=== PATIENT | female | born 1980 | race Caucasian/White ===

== ENCOUNTER 2017-05-20 15:17 | Emergency (ER) | payer BC ==
[2017-05-20 16:40] VITALS: BP 137/75
--- NOTE | 2017-05-20 16:50 | UC ---
Ear Complaint HPI - HPI Summary HPI Summary: Ear pain for 3 days - History of Current Complaint Chief Complaint: UCEar Stated Complaint: LEFT EAR PAIN Time Seen by Provider: 05/20/17 16:44 Hx Obtained From: Patient Hx Last Menstrual Period: 7 yrs ago - on mirena Onset/Duration: Sudden Onset, Lasting Days Severity Initially: Moderate - Allergies/Home Medications Allergies/Adverse Reactions: Allergies Allergy/AdvReac Type Severity Reaction Status Date / Time Azithromycin Allergy Intermediate Rash Verified 05/20/17 16:40 [From Zithromax Z-Victor Manuel] mangoes Allergy Swelling Uncoded 05/20/17 16:40 Of Face,Lips,& Throat seasonal Allergy Congestion Uncoded 05/20/17 16:40 PMH/Surg Hx/FS Hx/Imm Hx - Surgical History Surgical History: Yes Surgery Procedure, Year, and Place: breast reduction, wisdom tooth extraction - Family History Known Family History: Positive: None - Social History Alcohol Use: Occasionally Substance Use Type: None Smoking Status (MU): Never Smoked Tobacco Have You Smoked in the Last Year: No Physical Exam Vital Signs: Initial Vital Signs Temp 97.7 F 05/20/17 16:37 Pulse 105 05/20/17 16:37 Resp 14 05/20/17 16:37 BP 137/75 05/20/17 16:37 Pulse Ox 100 05/20/17 16:37 Ear Complaint Course/Dx - Course Course Of Treatment: hx obtained, exam performed ,med reviewed treated for serous otitis left ear - Differential Dx/Diagnosis Differential Diagnosis/HQI/PQRI: Cerumen Impaction, Otitis Externa, Otitis Media , URI Provider Diagnoses: Serous otitis of left ear Discharge - Discharge Plan Condition: Stable Disposition: HOME Prescriptions: predniSONE TAB* [Deltasone TAB*] 40 mg PO DAILY #14 tab Patient Education Materials: Serous Otitis Media (ED) Additional Instructions: 1. warm compresses to the left ear 2. Take the medication as prescribed. 3. Follow up with any worsening symtpoms 4. Gargle with salt water.
== END 2017-05-20 16:57 | disposition home or self-care (01) ==
LOC: UCCORT 15:17
DX: H65.92 Unspecified nonsuppurative otitis media, left ear (principal); J30.2 Other seasonal allergic rhinitis; Z91.018 Allergy to other foods; Z88.1 Allergy status to other antibiotic agents
CPT/HCPCS: 99211; G0463

== ENCOUNTER 2018-07-30 14:23 | Emergency (ER) | payer BC ==
[2018-07-30 15:50] VITALS: BP 131/84
--- NOTE | 2018-07-30 16:14 | UC ---
Throat Pain/Nasal Yassine HPI - HPI Summary HPI Summary: Pt c/o left ear pain, ST, nasal congestion X "several days". Pt has a hx of asthma and allergies. Pt is a school resource officer - History of Current Complaint Chief Complaint: UCRespiratory Stated Complaint: ST, LT EAR PAIN Time Seen by Provider: 07/30/18 15:30 Hx Obtained From: Patient Hx Last Menstrual Period: 07/17/18 ?: No Onset/Duration: Gradual Onset, Lasting Days, Still Present Severity: Moderate Pain Intensity: 5 Cough: None Associated Signs & Symptoms: Positive: Dysphagia, Hoarseness, Sinus Discomfort, Nasal Discharge Related History: Seasonal Allergies - Epiglottits Risk Factors Epiglottis Risk Factors: Negative - Allergies/Home Medications Allergies/Adverse Reactions: Allergies Allergy/AdvReac Type Severity Reaction Status Date / Time azithromycin Allergy Rash Verified 07/30/18 15:43 Home Medications: Home Medications Citalopram TAB* [CeleXA TAB*] 20 mg PO DAILY 07/30/18 [History Confirmed ] hydrOXYzine HCL TAB* [Atarax 10 MG TAB*] 10 mg PO TID PRN 07/30/18 [History Confirmed 07/30/18] PMH/Surg Hx/FS Hx/Imm Hx Previously Healthy: Yes Respiratory History: Asthma - Surgical History Surgical History: Yes Surgery Procedure, Year, and Place: breast reduction, wisdom tooth extraction - Family History Known Family History: Positive: None Negative: Cardiac Disease, Hypertension - Social History Occupation: Employed Full-time Lives: With Family Alcohol Use: Occasionally Substance Use Type: None Smoking Status (MU): Never Smoked Tobacco Have You Smoked in the Last Year: No Review of Systems All Other Systems Reviewed And Are Negative: Yes Constitutional: Positive: Chills Skin: Positive: Negative Eyes: Positive: Negative ENT: Positive: Sore Throat, Ear Ache - left Respiratory: Positive: Negative Cardiovascular: Positive: Negative Gastrointestinal: Positive: Negative Genitourinary: Positive: Negative Motor: Positive: Negative Neurovascular: Positive: Negative Musculoskeletal: Positive: Negative Neurological: Positive: Negative Psychological: Positive: Negative Is Patient Immunocompromised?: No Physical Exam Triage Information Reviewed: Yes Appearance: Well-Appearing Vital Signs: Initial Vital Signs Temp 97.5 F 07/30/18 15:45 Pulse 89 07/30/18 15:45 Resp 14 07/30/18 15:45 BP 131/84 07/30/18 15:45 Pulse Ox 98 07/30/18 15:45 Vital Signs Reviewed: Yes Eye Exam: Normal ENT: Positive: Nasal congestion, TM bulging Dental Exam: Normal Neck exam: Normal Respiratory Exam: Normal Respiratory: Positive: Lungs clear Cardiovascular Exam: Normal Musculoskeletal Exam: Normal Neurological Exam: Normal Psychological Exam: Normal Skin Exam: Normal Diagnostics - Laboratory Diagnostic Studies Completed/Ordered: rapid strep: negative Throat Pain/Nasal Course/Dx - Differential Dx/Diagnosis Differential Diagnosis/HQI/PQRI: Otitis Media, Pharyngitis, Tonsillitis Provider Diagnosis: Viral syndrome, Left ear pain, Sore throat Discharge - Sign-Out/Discharge Documenting (check all that apply): Patient Departure All imaging exams completed and their final reports reviewed: No Studies - Discharge Plan Condition: Stable Disposition: HOME Patient Education Materials: Viral Syndrome (ED) Referrals: Lexus Gilman NP [Primary Care Provider] - If Needed - Billing Disposition and Condition Condition: STABLE Disposition: Home
== END 2018-07-30 16:31 | disposition home or self-care (01) ==
LOC: UCCORT 14:23
DX: B34.9 Viral infection, unspecified (principal); H92.02 Otalgia, left ear; J02.9 Acute pharyngitis, unspecified; Z88.1 Allergy status to other antibiotic agents; J45.909 Unspecified asthma, uncomplicated
CPT/HCPCS: 87651; 99211; G0463

== ENCOUNTER 2018-08-20 18:55 | Emergency (ER) | payer BC, OTHER ==
[2018-08-20 19:19] VITALS: BP 139/89
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
== END 2018-08-20 19:33 | disposition home or self-care (01) ==
LOC: UCCORT 18:55
DX: S16.1XXA Strain of muscle, fascia and tendon at neck level, initial encounter (principal); I10 Essential (primary) hypertension; Z88.1 Allergy status to other antibiotic agents; V49.9XXA Car occupant (driver) (passenger) injured in unspecified traffic accident, initial encounter; Y92.9 Unspecified place or not applicable
CPT/HCPCS: 99212; G0463

== ENCOUNTER 2019-02-03 12:18 | Emergency (ER) | payer BC ==
[2019-02-03 12:48] VITALS: BP 125/76
--- NOTE | 2019-02-03 13:00 | UC ---
UC General HPI - HPI Summary HPI Summary: 3 day hx of pain to outside of L foot and rocking chair rolled on it. it swelling when standing for periods of time. also notes episodic sharp throat and L ear pains ever since the flu in September. admits ear feels plugged and like it has fluid and makes noise. denies any fever, uri or discharge. - History of Current Complaint Chief Complaint: UCLowerExtremity Stated Complaint: LEFT FOOT INJURY Time Seen by Provider: 02/03/19 12:38 Hx Obtained From: Patient Hx Last Menstrual Period: 01/19/19 Pain Intensity: 5 Associated Signs & Symptoms: Negative: Headache - Allergy/Home Medications Allergies/Adverse Reactions: Allergies Allergy/AdvReac Type Severity Reaction Status Date / Time azithromycin Allergy Rash Verified 10/04/18 18:09 Home Medications: Home Medications Cetirizine* [ZyrTEC 10 MG TAB*] 10 mg PO DAILY PRN 02/03/19 [History Confirmed 02/03/19] Ibuprofen TAB* [Advil TAB*] 200 mg PO Q6H PRN 02/03/19 [History Confirmed ] PMH/Surg Hx/FS Hx/Imm Hx - Additional Past Medical History Additional PMH: allergies Psychological History: Anxiety - Surgical History Surgical History: Yes Surgery Procedure, Year, and Place: breast reduction - Family History Known Family History: Positive: None Negative: Cardiac Disease, Hypertension - Social History Alcohol Use: Occasionally Substance Use Type: None Smoking Status (MU): Never Smoked Tobacco Have You Smoked in the Last Year: No Review of Systems All Other Systems Reviewed And Are Negative: No Constitutional: Negative: Fever, Chills Skin: Negative: Rash Eyes: Negative: Drainage, Eye Redness ENT: Positive: Sore Throat, Ear Ache. Negative: Sinus Congestion Respiratory: Negative: Cough Musculoskeletal: Negative: Decreased ROM, Edema Neurological: Negative: Headache, Weakness, Numbness Physical Exam Triage Information Reviewed: Yes Appearance: Well-Appearing Vital Signs: Initial Vital Signs Temp 97.6 F 02/03/19 12:43 Pulse 83 02/03/19 12:43 Resp 02/03/19 12:43 BP 125/76 02/03/19 12:43 Pulse Ox 98 02/03/19 12:43 Vital Signs Reviewed: Yes Eyes: Positive: Conjunctiva Clear ENT: Positive: Pharynx normal, TMs normal, Other - Canals clear. no auricular adenoapthy or mastoid tenderness.. Negative: Nasal congestion, Nasal drainage Neck: Positive: Supple, Nontender, No Lymphadenopathy Respiratory: Positive: No respiratory distress Cardiovascular: Positive: RRR Musculoskeletal: Positive: Other: - L ankle non tender. L foot: no deformity, swelling or brusing. tender over lateral foot only. gross s/v/m is intact Neurological: Positive: Alert Psychological: Positive: Age Appropriate Behavior Skin Exam: Normal Skin: Negative: Rashes Diagnostics - Radiology No standard instances Radiology Interpretation Completed By: Radiologist - IMPRESSION: NO EVIDENCE FOR FRACTURE. Course/Dx - Differential Dx - Multi-Symptom Differential Diagnoses: Other - no concern for foot or ear infection. no fx / doslocation foot - Diagnoses Provider Diagnosis: Eustachian tube dysfunction, Contusion of foot, left Discharge - Sign-Out/Discharge Documenting (check all that apply): Patient Departure All imaging exams completed and their final reports reviewed: Yes - Discharge Plan Condition: Stable Disposition: HOME Patient Education Materials: Foot Contusion (ED) Referrals: Lexus Gilman NP [Primary Care Provider] - Additional Instructions: THE TUBE IN THE L INNER EAR IS CAUSING YOU DISCOMFORT. THERE IS NO SIGN OF INFECTION. START FLONASE NASAL SPRAY DAILY PER LABEL X 2 WEEKS. FOLLOW UP WITH YOUR PRIMARY CARE IN 10-14 DAYS OR SOONER IF WORSE. - Billing Disposition and Condition Condition: STABLE Disposition: Home
== END 2019-02-03 13:45 | disposition home or self-care (01) ==
LOC: UCCORT 12:18
DX: H69.82 Other specified disorders of Eustachian tube, left ear (principal); S90.32XA Contusion of left foot, initial encounter; W22.8XXA Striking against or struck by other objects, initial encounter; Y92.9 Unspecified place or not applicable
CPT/HCPCS: 99211; G0463

== ENCOUNTER 2019-08-02 16:53 | Emergency (ER) | payer BC ==
[2019-08-02 17:58] VITALS: BP 125/77
--- NOTE | 2019-08-02 18:20 | UC ---
Skin Complaint HPI - HPI Summary HPI Summary: 39 y female presents to the urgent care c/o Facial tightness and skin dryness since 07/30/2019. This morning she noticed redness and swelling on cheeks, around eyes w/ a rash and itchiness. No new possible allergens before onset symptoms. She states she has used a new Pond's facial cream to alleviate facial dryness sice symptoms started. Pt is allergic to Eliot and Z-anjali. She can't recall new medication or using new detergents or eating something different. Pt w/ PMHX of asthma, but denies respiratory distress, wheezing, throat swelling or difficulty swallowing, chest pain, abdominal pain, N/V/d. She has not taken anything to alleviate symptoms. - History of Current Complaint Chief Complaint: UCRash Time Seen by Provider: 08/02/19 17:51 Stated Complaint: REDNESS/SWELLING FACE/STOMACH ISSUE Hx Obtained From: Patient Hx Last Menstrual Period: 07/22/2019 ?: No Onset/Duration: Sudden Onset - facial rash w/ itchiness since this morning, Lasting Days - 2 days w/ facial dryness and tightness, Still Present Skin Exposure Onset/Duration: Days Ago - 2 days ago she started to use Facial Pond's cream Timing: Constant Onset Severity: Mild Current Severity: Mild Pain Intensity: 4 - facial tenderness Pain Scale Used: 0-10 Numeric Location: Discrete - both cheecks w/ a red itchy rash Character: Pruritus, Hives, Redness Aggravating Factor(s): Touch Alleviating Factor(s): Nothing Associated Signs & Symptoms: Positive: Rash - both cheecks w/ a red itchy rash, Tenderness. Negative: Difficulty Breathing, Fever, Chills, Wheezing, Chest Pain , Hoarseness, Throat Tightening, Lightheadedness, Drainage Related History: Other: - using facial cream Marcin's for dryness then rash developed - Allergy/Home Medications Allergies/Adverse Reactions: Allergies Allergy/AdvReac Type Severity Reaction Status Date / Time azithromycin Allergy Rash Verified 08/02/19 17:59 PMH/Surg Hx/FS Hx/Imm Hx Previously Healthy: Yes Respiratory History: Asthma - Surgical History Surgical History: Yes Surgery Procedure, Year, and Place: breast reduction - Family History Known Family History: Positive: Hypertension, Diabetes Negative: Cardiac Disease - Social History Occupation: Employed Full-time Lives: With Family Alcohol Use: Occasionally Substance Use Type: None Smoking Status (MU): Never Smoked Tobacco Have You Smoked in the Last Year: No Review of Systems All Other Systems Reviewed And Are Negative: Yes Constitutional: Positive: Negative Skin: Positive: Rash - both cheecks w/ a red itchy rash Eyes: Positive: Negative ENT: Positive: Negative Respiratory: Positive: Negative Cardiovascular: Positive: Negative Gastrointestinal: Positive: Negative Genitourinary: Positive: Negative Motor: Positive: Negative Neurovascular: Positive: Negative Musculoskeletal: Positive: Negative Neurological: Positive: Negative Psychological: Positive: Negative Is Patient Immunocompromised?: No Physical Exam - Summary Physical Exam Summary: Vital Signs Reviewed: Yes General: well appearing, well nourished obese female in no acute apparent pain distress, sitting comfortably on examining table Eye Exam: Normal Eyes: Positive: Conjunctiva Clear - PERRLA< EOMI, fundi grossly normal ENT: Positive: Normal ENT inspection, Hearing grossly normal, Pharynx normal, TMs normal Neck: Positive: Supple, Nontender, No Lymphadenopathy Respiratory: Positive: Chest non-tender, Lungs clear, Normal breath sounds, No respiratory distress Cardiovascular: Positive: RRR, No Murmur, Pulses Normal, Brisk Capillary Refill Abdomen Description: Positive: Nontender, No Organomegaly, Soft. Negative: CVA Tenderness (R), CVA Tenderness (L) Bowel Sounds: Positive: Present Musculoskeletal: Positive: Strength Intact, ROM Intact, No Edema Neurological: Positive: Alert, Muscle Tone Normal Psychological Exam: Normal Skin: Positive: B/l cheeks w/ scattered discrete erythematous maculopapular eruption w/ some scattered hives also close to lower eyelid w/ mild signs of excoriation, no drainage observed, non tender to palpation. Triage Information Reviewed: Yes Vital Signs: Initial Vital Signs Temp 98.7 F 08/02/19 17:49 Pulse 84 08/02/19 17:49 Resp 12 08/02/19 17:49 BP 125/77 08/02/19 17:49 Pulse Ox 100 08/02/19 17:49 Course/Dx - Course Course Of Treatment: 39 y female presents to the urgent care c/o Facial tightness and skin dryness since 07/30/2019. This morning she noticed redness and swelling on cheeks, around eyes w/ a rash and itchiness. No new possible allergens before onset symptoms. She states she has used a new Pond's facial cream to alleviate facial dryness sice symptoms started. Pt is allergic to Eliot and Z-anjali. She can't recall new medication or using new detergents or eating something different. Pt w/ PMHX of asthma, but denies respiratory distress, wheezing, throat swelling or difficulty swallowing, chest pain, abdominal pain, N/V/d. She has not taken anything to alleviate symptoms. Hx obtained. Pt w/ a possible allergic reaction to unknown allergen on face on examination. Pt Given Methylprednisolone IM inj and Famotidine PO by nurse. Pt tolerated well IM inj. Pt RX Prednisone PO taper dose, hydrocortisone topical cream for night time to alleviate symptoms. Advised to stop using the Pond's cream and f/u w/ Customer Facilities Supervisor in 2-3 days if not improvment of symptoms. D/C instructions explained. Pt understood and agreed w/ plan of care and left the clinic ambulating and hemodynamically stable and feeling better. - Differential Diagnoses - Skin Complaint Differential Diagnoses: Abscess, Allergic Reaction, Anaphylaxis, Angioedema, Cellulitis, Contact Dermatitis, Local Allergic Reaction, Medication; Adverse Reaction, Urticaria - Diagnoses Provider Diagnosis: Facial rash, Allergic reaction Discharge ED - Sign-Out/Discharge Documenting (check all that apply): Patient Departure - D/C home All imaging exams completed and their final reports reviewed: No Studies - Discharge Plan Condition: Stable Disposition: HOME Prescriptions: Hydrocortisone 1% CREAM* 1 applic TOPICAL BID #1 applic predniSONE 20 mg TAB [Deltasone 20 MG TAB*] 20 mg PO DAILY #11 tab Patient Education Materials: Contact Dermatitis (ED) Referrals: Lexus Gilman NP [Primary Care Provider] - 2 Days Kelsey Correia [Medical Doctor] - 2 Days Additional Instructions: 1-Please Start taking Prednisone PO taper dose starting tomorrow. first loading IM inj dose given today at the clinic. 2- Apply Hydrocortisone topical cream as directed only at night to Avoid exposure to the sun. 3-If symptoms do not improve or worsen please f/u with your PCP or Customer Facilities Supervisor DR Correia in 2-3 days for further evaluation and treatment. 4- If symptoms worsen and you develop SOB or difficulty breathing please go immediately to the Er for further management. - Billing Disposition and Condition Condition: STABLE Disposition: Home
[2019-08-02] MEDS ORDERED: methylPREDNISolone 125 MG* 2 ML VIAL IM ONE (18:21)
[2019-08-02] MEDS ORDERED: Famotidine TAB* 20 MG PO ONE (18:22)
== END 2019-08-02 19:15 | disposition home or self-care (01) ==
LOC: UCCORT 16:53
DX: R21 Rash and other nonspecific skin eruption (principal); T78.40XA Allergy, unspecified, initial encounter; J45.909 Unspecified asthma, uncomplicated; X58.XXXA Exposure to other specified factors, initial encounter; Y92.9 Unspecified place or not applicable; Z88.1 Allergy status to other antibiotic agents
CPT/HCPCS: 96372; 99212; A9270-GY; G0463; J2930

== ENCOUNTER 2019-11-13 11:58 | Emergency (ER) | payer BC ==
[2019-11-13 12:23] VITALS: BP 120/80
--- NOTE | 2019-11-13 12:31 | UC ---
Lower Extremity/Ankle HPI - HPI Summary HPI Summary: 39 yo female with left great toe pain x 1 1/2 weeks hurts to bear wt min pain at rest no trauma walking more lately no fever joint not hot - History of Current Complaint Chief Complaint: UCLowerExtremity Stated Complaint: LT FOOT INJURY Time Seen by Provider: 11/13/19 12:09 Hx Obtained From: Patient Hx Last Menstrual Period: November 12 Onset/Duration: Gradual Onset, Lasting Weeks Severity Initially: Mild Severity Currently: Mild Pain Intensity: 2 - 8 with wt bearing Pain Scale Used: 0-10 Numeric Aggravating Factor(s): Standing, Ambulation Alleviating Factor(s): Rest, Elevation Able to Bear Weight: Yes Feet (Multiple View): 1 - tender/slight swelling - Allergies/Home Medications Allergies/Adverse Reactions: Allergies Allergy/AdvReac Type Severity Reaction Status Date / Time azithromycin Allergy Rash Verified 11/13/19 12:19 Home Medications: Home Medications Citalopram TAB* [Celexa TAB*] 20 mg PO DAILY 07/30/18 [History Confirmed ] Cetirizine* [ZyrTEC 10 MG TAB*] 10 mg PO DAILY PRN 02/03/19 [History Confirmed 11/13/19] Naproxen [Naproxen 500 mg tab] 500 mg PO BID PRN #20 tablet 11/13/19 [Rx] PMH/Surg Hx/FS Hx/Imm Hx Previously Healthy: Yes Respiratory History: Asthma, Bronchitis - Surgical History Surgical History: Yes Surgery Procedure, Year, and Place: breast reduction - Family History Known Family History: Positive: None, Hypertension, Diabetes Negative: Cardiac Disease - Social History Alcohol Use: None Substance Use Type: None Smoking Status (MU): Never Smoked Tobacco Have You Smoked in the Last Year: No Review of Systems All Other Systems Reviewed And Are Negative: Yes Constitutional: Positive: Negative Skin: Positive: Negative Eyes: Positive: Negative ENT: Positive: Negative Respiratory: Positive: Negative Cardiovascular: Positive: Negative Gastrointestinal: Positive: Negative Genitourinary: Positive: Negative Motor: Positive: Negative Neurovascular: Positive: Negative Musculoskeletal: Positive: Arthralgia - left great toe Neurological/Mental Status: Positive: Negative Psychological: Positive: Negative Physical Exam Triage Information Reviewed: Yes Appearance: Well-Appearing, No Pain Distress, Well-Nourished Vital Signs: Initial Vital Signs Temp 98.5 F 11/13/19 12:11 Pulse 111 11/13/19 12:11 Resp 18 11/13/19 12:11 BP 120/80 11/13/19 12:11 Pulse Ox 93 11/13/19 12:11 Vital Signs Reviewed: Yes Eyes: Positive: Conjunctiva Clear ENT: Positive: Hearing grossly normal. Negative: Nasal congestion, Nasal drainage, Trismus, Muffled voice, Hoarse voice Dental Exam: Normal Neck: Positive: Supple Respiratory: Positive: Lungs clear, Normal breath sounds, No respiratory distress, No accessory muscle use Cardiovascular: Positive: RRR, No Murmur Musculoskeletal: Positive: ROM Intact, Edema @ - left great toe (mild) not bright red or hot, Other: - antalgic gait Neurological: Positive: Alert Psychological Exam: Normal Skin Exam: Normal Diagnostics - Radiology No standard instances Radiology Interpretation Completed By: Radiologist Summary of Radiographic Findings: neg for fx Lower Extremity Course/Dx - Differential Dx/Diagnosis Provider Diagnosis: Sprain of left great toe Discharge ED - Sign-Out/Discharge Documenting (check all that apply): Patient Departure All imaging exams completed and their final reports reviewed: Yes - Discharge Plan Condition: Stable Disposition: HOME Prescriptions: Naproxen [Naproxen 500 mg tab] 500 mg PO BID PRN #20 tablet PRN Reason: Pain Patient Education Materials: Sprain (ED), Post Surgical Shoe (ED) Referrals: Lexus Gilman NP [Primary Care Provider] - 2 Weeks (if not better) - Billing Disposition and Condition Condition: STABLE Disposition: Home
== END 2019-11-13 13:01 | disposition home or self-care (01) ==
LOC: UCCORT 11:58
DX: S93.502A Unspecified sprain of left great toe, initial encounter (principal); X58.XXXA Exposure to other specified factors, initial encounter; Y92.9 Unspecified place or not applicable; Z88.1 Allergy status to other antibiotic agents
CPT/HCPCS: 99212; G0463